=== PATIENT | male | born 1980 | race Caucasian/White ===

== ENCOUNTER 2020-08-31 08:51 | Emergency (ER) | payer OTHER ==
[~2020-08-31 08:51] MED LIST: NORCO 5-325 TA1 EACH PO; PENICILLIN V P250 M1 PO
[2020-08-31] MEDS ORDERED: NAPROXEN500 MG PO (12:20)
== END 2020-08-31 12:51 | disposition home or self-care (01) ==
LOC: FER 08:51
DX: S30.0XXA Contusion of lower back and pelvis, initial encounter (principal); F17.210 Nicotine dependence, cigarettes, uncomplicated; X58.XXXA Exposure to other specified factors, initial encounter
CPT/HCPCS: 72110; 72220; J1885